=== PATIENT | female | born 1955 | race Caucasian/White ===

== ENCOUNTER → 2017-03-09 | Outpatient (CLI) | payer BC ==
[~2017-03-09] VITALS: Ht 172.7 cm; Wt 61.0 kg
[~2017-03-09] MED LIST: ALLEGRA 60MG TA60 MG PO; EPA FISH OIL1 SGL PO; MAGNEBIND 300 21 TAB PO; MULTI VITAMINS1 TAB PO; OCUVITE1 TA1 PO; PREMARIN VAG42.5 GM VG; VITAMIN D 1001000 IU
[2017-03-09 15:15] VITALS: BP 107/70; PULSE 68; TEMP 98.3
== END ==
LOC: EUO 14:51
DX: M81.0 Age-related osteoporosis without current pathological fracture (principal)
CPT/HCPCS: J3489

== ENCOUNTER → 2017-04-06 | Outpatient (CLI) | payer BC | LOC: MC.RAD 08:14 | DX: Z12.31 Encounter for screening mammogram for malignant neoplasm of breast (principal) ==

== ENCOUNTER 2018-04-05 14:47 | Outpatient (CLI) | payer BC ==
[~2018-04-05] VITALS: Ht 172.7 cm; Wt 67.0 kg
[2018-04-05] MEDS ORDERED: RECLAST5 MG/100 M IV (15:20)
[2018-04-05 15:22] VITALS: BP 111/68; PULSE 56
== END 2018-04-05 15:55 | disposition home or self-care (01) ==
LOC: EUO 14:47
DX: M81.0 Age-related osteoporosis without current pathological fracture (principal)
CPT/HCPCS: J3489

== ENCOUNTER 2019-04-10 14:00 | Outpatient (CLI) | payer MEDICARE, BC ==
--- NOTE | 2019-04-09 13:16 | NUR ---
[facility] was given notification that pt would need to reschedule due to drug availability today. I called pt's listed phone number and left a voicemail message with a call back #. I also called pt's emergency contact, Rogelio Jimenez, and did speak with him giving him the same message, he stated he would call/text her.
[~2019-04-10] VITALS: Ht 172.7 cm; Wt 66.1 kg
[~2019-04-10 14:00] MED LIST changes: +RECLAST5 MG/100 M IV
[2019-04-10] MEDS ORDERED: SUDAFED30 MG PO (14:27)
[2019-04-10 14:30] VITALS: BP 110/57; PULSE 62; TEMP 97.9
== END 2019-04-10 15:42 | disposition home or self-care (01) ==
LOC: EUO 14:00
DX: M81.0 Age-related osteoporosis without current pathological fracture (principal)
CPT/HCPCS: J3489

== ENCOUNTER → 2019-05-14 | Outpatient (CLI) | payer MEDICARE, BC ==
[~2019-05-14] MED LIST changes: +SUDAFED30 MG PO
== END ==
LOC: MC.RAD 08:43
DX: Z12.31 Encounter for screening mammogram for malignant neoplasm of breast (principal)

== ENCOUNTER 2020-04-24 14:56 | Outpatient (CLI) | payer MEDICARE, BC ==
[~2020-04-24] VITALS: Ht 172.7 cm; Wt 67.9 kg
[2020-04-24] MEDS ORDERED: XALATAN EYE DROPS OU (15:18)
[2020-04-24 15:28] VITALS: BP 112/60; PULSE 72; TEMP 97.8
== END 2020-04-24 17:17 | disposition home or self-care (01) ==
LOC: EUO 14:56
DX: M81.0 Age-related osteoporosis without current pathological fracture (principal)
CPT/HCPCS: J3489

== ENCOUNTER → 2020-05-15 | Outpatient (CLI) | payer MEDICARE, BC ==
[~2020-05-15] MED LIST changes: +XALATAN EYE DROPS OU
== END ==
LOC: MC.RAD 07:21
DX: Z12.31 Encounter for screening mammogram for malignant neoplasm of breast (principal)

== ENCOUNTER 2021-04-17 09:47 | Outpatient (CLI) | payer MEDICARE, BC ==
[~2021-04-17 09:47] MED LIST changes: -MULTI VITAMINS1 TAB PO; +MULTIPLE VITAMI1 TA5 PO; -VITAMIN D 1001000 IU; +VITAMIN D31000 I1 PO
[2021-04-17 10:06] VITALS: BP 120/76; PULSE 65; TEMP 97.9
== END 2021-04-17 10:44 ==
LOC: EUO 09:47
DX: M81.0 Age-related osteoporosis without current pathological fracture (principal)
CPT/HCPCS: J3489